=== PATIENT | male | born 1975 | race Caucasian/White ===

== ENCOUNTER 2017-12-02 15:57 | Outpatient (CLI) | payer MEDICAID ==
--- NOTE | 2017-12-02 21:44 | XRay Report ---
FINAL REPORT PROCEDURE: XR FOOT 3+V LT TECHNIQUE: LEFT foot radiographs, AP, lateral, and oblique views. CPT 39305 HISTORY: PAIN IN LEFT FOOT COMPARISON: No prior studies are available for comparison. FINDINGS: Fracture (s) and/or Dislocation(s): None . Alignment: Normal . Joint space(s): Normal . Soft tissues: Normal . Bone mineralization: Normal . Foreign bodies: None . Calcaneal spurring: None . IMPRESSION: Normal Examination .
--- NOTE | 2017-12-02 21:46 | XRay Report ---
FINAL REPORT PROCEDURE: XR KNEES STANDING AP BILATERAL TECHNIQUE: Bilateral knee radiographs, standing AP view. HISTORY: BILATERAL KNEE PAIN COMPARISON: No prior studies are available for comparison. FINDINGS: Fracture (s) and/or Dislocation(s): None . Joint space(s): Normal. Soft tissues: Normal. Bone mineralization: Normal. Foreign bodies: None. IMPRESSION: Normal Examination.
== END 2017-12-02 15:58 | disposition home or self-care (01) ==
LOC: XRAY 15:57
PROVIDERS: ATTEND Orthopaedic Surgery
DX: M25.562 Pain in left knee (principal); M25.561 Pain in right knee; M79.672 Pain in left foot
CPT/HCPCS: 73565

== ENCOUNTER 2018-06-30 09:02 | Day surgery (SDC) | payer MEDICAID ==
[2018-06-30] MEDS ORDERED: DILAUDID IV PRN (10:49)
[2018-06-30] MEDS ORDERED: XYLOCAINE MPF 2% ONE (10:49)
[2018-06-30] MEDS ORDERED: SUBLIMAZE ONE (10:49)
[2018-06-30] MEDS ORDERED: SUBLIMAZE IV NR (10:49)
--- NOTE | 2018-06-30 10:49 | Anesthesia Day of Surgery ---
Anesthesia Day of Surgery - Day of Surgery Patient Examined: Yes Patient H&P Reviewed: Yes Patient is NPO: Yes
--- NOTE | 2018-06-30 10:49 | Anesthesia Consultation ---
Anesthesia Consult and Med Hx Date of service: 06/30/18 - Airway Anesthetic Teeth Evaluation: Good (missing teeth; none loose) ROM Head & Neck: Adequate Mental/Hyoid Distance: Adequate Mallampati Class: Class III Intubation Access Assessment: Possibly Difficult - Pulmonary Exam CTA: Yes - Cardiac Exam Cardiac Exam: RRR - Pre-Operative Health Status ASA Pre-Surgery Classification: ASA3 Proposed Anesthetic Plan: General Nerve Block: IS - Pulmonary Hx Smoking: No Hx Asthma: Yes (has not required inhaler in many years) SOB: No Hx Sleep Apnea: No (HERNÁN PRE SCREEN HIGH RISK) - Cardiovascular System Hx Hypertension: No Hx Heart Attack/AMI: No - Central Nervous System Hx Seizures: No CVA: No - Gastrointestinal Hx Gastroesophageal Reflux Disease: No - Endocrine Hx Renal Disease: No Hx Liver Disease: No Hx Insulin Dependent Diabetes: Yes Hx Thyroid Disease: No - Other Systems Hx Obesity: Yes - Additional Comments Anesthesia Medical History Comments: Consented for preop interscalene block for postop analgesia
[2018-06-30] MEDS ORDERED: DIPRIVAN 10 MG/ML IV ONE ×2 (10:50→14:55)
[2018-06-30] MEDS ORDERED: LACTATED RINGERS 1,000 ML IV SCH (11:00)
[2018-06-30] MEDS ORDERED: VERSED IV NR (11:00)
[2018-06-30] MEDS ORDERED: XYLOCAINE 1% 20 mL ONE (11:07)
[2018-06-30] MEDS ORDERED: DEPO-Medrol ONE (11:56)
[2018-06-30] MEDS ORDERED: ADRENALIN ONE (11:56)
[2018-06-30] MEDS ORDERED: MARCAINE-EPI 0.25%-1:200,000 INFILTRATI ONE (11:56)
[2018-06-30] MEDS ORDERED: ANCEF/STERILE WATER 2 GM/20 ML IV NR (13:00)
[2018-06-30] MEDS ORDERED: ADRENALIN IV ONE (13:36)
[2018-06-30] MEDS ORDERED: NACL 0.9% IR ONE (13:36)
[2018-06-30] MEDS ORDERED: QUELICIN ONE (14:54)
[2018-06-30] MEDS ORDERED: ZOFRAN ONE (15:18)
[2018-06-30] MEDS ORDERED: BLOXIVERZ ONE (15:18)
[2018-06-30] MEDS ORDERED: ROBINUL ONE (15:18)
--- NOTE | 2018-06-30 15:55 | Procedure Note ---
Date of procedure: 06/30/18 Pre-op diagnosis: impingement syndrome right shoulder possible rotator cuff tear Post-op diagnosis: other (impingement syndrome right shoulder partial-thickness tear supraspinatus tendon) Procedure: Arthroscopy right shoulder subacromial decompression Procedure The patient was brought to the OR after being given a scalene nerve block in preoperative holding The patient was placed supine onto the OR table this was followed by induction and intubation by anesthesia Patient was turned into the left lateral decubitus position at which point the right shoulder was prepped and draped in the usual sterile manner A, procedure was done to identify the patient and the correct operative site. Routine arthroscopic portals were made next the arthroscope was inserted into the subcutaneous subacromial space the shoulder was then insufflated with normal saline solution examination at this point revealed partial-thickness tears in the supraspinatus tendon upon probing there was no full-thickness tear is noted however patient was found to have a large bony prominence underneath the subacromial region using a combination of arthroscopic shaver and radiofrequency ablation the soft tissue was removed over the dorsal acromion and before meals joints next a 5.5 bur was brought in and the bony tissues were debrided back to create a more space for the rotator cuff tendon the arm was taken through a range of motion internal and external rotation again there was no obvious full-thickness tears noted and in addition the bony impingement noted at the beginning was now gone. Followingthe shoulder joint was then copiously irrigated with saline solution a second look was done no remaining bony of soft tissue debris was left in the subacromial space. The arthroscope was then removed the stab wounds were repaired routine postoperative dressings were applied the patient tolerated procedure and there were no complications. He was taken to postanesthesia recovery in a stable condition Anesthesia: ric WEIR Surgeon: PIA CASILLAS Classified Ad Taker: REJI GRISSOM Estimated blood loss: minimal Pathology: none Condition: stable Disposition: PACU
[2018-06-30 16:25] VITALS: BP 120/65
[2018-07-01] MEDS ORDERED: PERCOCET 5/325 ONE (18:01)
== END 2018-06-30 16:55 | disposition home or self-care (01) ==
LOC: OR 09:02
PROVIDERS: ATTEND Orthopaedic Surgery
DX: M75.121 Complete rotator cuff tear or rupture of right shoulder, not specified as traumatic (principal); F17.210 Nicotine dependence, cigarettes, uncomplicated; E11.9 Type 2 diabetes mellitus without complications; J45.909 Unspecified asthma, uncomplicated; K21.9 Gastro-esophageal reflux disease without esophagitis; E66.9 Obesity, unspecified; Z68.38 Body mass index [BMI] 38.0-38.9, adult; Z79.84 Long term (current) use of oral hypoglycemic drugs; Z79.899 Other long term (current) drug therapy; Z79.4 Long term (current) use of insulin
CPT/HCPCS: 29822; 82962; A4217; J0171; J0330; J2250; J2405; J2704; J2710; J3010; J7120; J1030

== ENCOUNTER 2018-07-01 10:54 | Inpatient (IN) | payer MEDICAID ==
[2018-07-01 11:24] LABS: Basophils # (Auto) 0.1 K/mm3 (0.0-0.1); Basophils % (Auto) 0.4 % (0.0-1.8); Eosinophils % (Auto) 0.1 % (0.0-4.3); Hematocrit 45.3 % (35.5-45.6); Hemoglobin 15.7 gm/dl (11.8-15.2); Lymphocytes # (Auto) 1.5 K/mm3 (1.2-5.4); Lymphocytes % (Auto) 9.7 % (13.4-35.0); Mean Corpuscular HGB Conc 35 % (32-34); Mean Corpuscular Hemoglobin 31 pg (28-32); Mean Corpuscular Volume 91 fl (84-94); Monocytes # (Auto) 1.5 K/mm3 (0.0-0.8); Monocytes % (Auto) 9.9 % (0.0-7.3); Platelet Count 198 K/mm3 (140-440); Red Blood Count 5.01 M/mm3 (3.65-5.03); Red Cell Distribution Width 13.1 % (13.2-15.2)
[2018-07-01 11:47] LABS: BUN/Creatinine Ratio 11; Blood Urea Nitrogen 8 mg/dL (9-20); Calcium 8.7 mg/dL (8.4-10.2); Hemolysis Index 17
--- NOTE | 2018-07-01 12:11 | Emergency Department Report ---
ED Shortness of Breath HPI - General Chief Complaint: Fever Stated Complaint: FEVER/SOB/PAIN Time Seen by Provider: 07/01/18 12:06 Source: patient, family Mode of arrival: Ambulatory Limitations: Language Barrier - History of Present Illness Initial Comments: She is a 43-year-old male that presents emergency room with complaints of chest pain, fever, shortness of breath that started this morning. Patient states that he had shoulder surgery yesterday where he had an arthroscopic repair and was intubated. Patient states his fever was 103 last night and today he developed chest pain and shortness of breath. Patient states she has a cough. Patient states the pain in his shoulder is a 10 out 10 and and his chest pain is an 8 out of 10. Patient states the chest pain is sub- sternal and radiates to the left chest. Patient states that all this pain is better with rest and worse with movement and exertion. MD Complaint: shortness of breath, cough, chest pain, pain with inspiration -: Sudden Severity: severe Pain Scale: 10 Quality: sharp, stabbing Consistency: constant Improves With: rest Worsens With: exertion, movement, coughing Context: other (since surgery with intubation) Associated Symptoms: chest pain, pain with inspiration, fever, cough, sputum production, hemoptysis, diaphoresis, nausea/vomiting Treatments Prior to Arrival: none - Related Data Home Oxygen Therapy: No Home Medications Medication Instructions Recorded Confirmed Last Taken Ibuprofen [Motrin] 800 mg PO Q8HR PRN 01/05/18 07/01/18 06/28/18 Metformin HCl [Glucophage] 1,000 mg PO BID 01/05/18 07/01/18 06/29/18 09:00 Insulin Lispro Protamin/Lispro 60 units SUB-Q BID 07/01/18 07/01/18 Unknown [HumaLOG Mix 75-25 Kwikpen] Previous Rx's Medication Instructions Recorded Last Taken Type oxyCODONE [Roxicodone TAB] 5 mg PO Q6HR PRN #20 tablet 06/30/18 Unknown Rx Allergies Allergy/AdvReac Type Severity Reaction Status Date / Time No Known Allergies Allergy Verified 01/05/18 16:12 ED Review of Systems ROS: Stated complaint: FEVER/SOB/PAIN Other details as noted in HPI Constitutional: chills, fever Eyes: denies: eye pain, eye discharge, vision change ENT: denies: ear pain, throat pain Respiratory: cough, shortness of breath, SOB with exertion, SOB at rest. denies : wheezing Cardiovascular: chest pain, dyspnea on exertion. denies: palpitations Endocrine: no symptoms reported Gastrointestinal: denies: abdominal pain, nausea, diarrhea Genitourinary: denies: urgency, dysuria Musculoskeletal: denies: back pain, joint swelling, arthralgia Skin: denies: rash, lesions Neurological: denies: headache, weakness, paresthesias Psychiatric: denies: anxiety, depression Hematological/Lymphatic: denies: easy bleeding, easy bruising ED Past Medical Hx - Past Medical History Previous Medical History?: Yes Hx Hypertension: No Hx Heart Attack/AMI: No Hx Diabetes: Yes Hx GERD: Yes Hx Liver Disease: No Hx Renal Disease: No Hx Seizures: No Hx Asthma: Yes (has not required inhaler in many years) Hx HIV: No - Surgical History Past Surgical History?: Yes Additional Surgical History: right shoulder surgery. right eye surgery - Family History Family history: no significant - Social History Smoking Status: Never Smoker Substance Use Type: None - Medications Home Medications: Home Medications Medication Instructions Recorded Confirmed Last Taken Type Ibuprofen [Motrin] 800 mg PO Q8HR PRN 01/05/18 07/01/18 06/28/18 History Metformin HCl [Glucophage] 1,000 mg PO BID 01/05/18 07/01/18 06/29/18 09:00 History oxyCODONE [Roxicodone TAB] 5 mg PO Q6HR PRN #20 tablet 06/30/18 07/01/18 Unknown Rx Insulin Lispro Protamin/Lispro 60 units SUB-Q BID 07/01/18 07/01/18 Unknown History [HumaLOG Mix 75-25 Kwikpen] ED Physical Exam - General Limitations: No Limitations, Language Barrier General appearance: alert, in no apparent distress - Head Head exam: Present: atraumatic, normocephalic - Eye Eye exam: Present: normal appearance - ENT ENT exam: Present: mucous membranes moist - Neck Neck exam: Present: normal inspection - Respiratory Respiratory exam: Present: normal lung sounds bilaterally, rhonchi, decreased breath sounds - Cardiovascular Cardiovascular Exam: Present: regular rate, normal rhythm. Absent: systolic murmur, diastolic murmur, rubs, gallop - GI/Abdominal GI/Abdominal exam: Present: soft, normal bowel sounds - Rectal Rectal exam: Present: deferred - Extremities Exam Extremities exam: Present: normal inspection (right shoulder tender to palpation and has a bandage in place), tenderness - Back Exam Back exam: Present: normal inspection - Neurological Exam Neurological exam: Present: alert, oriented X3 - Psychiatric Psychiatric exam: Present: normal affect, normal mood - Skin Skin exam: Present: warm, dry, normal color, other (surgical sites look good. no redness noted. ). Absent: rash ED Course Vital Signs 07/01/18 07/01/18 07/01/18 11:01 11:42 11:45 Temperature 99.3 F Pulse Rate 84 86 82 Respiratory 18 16 15 Rate Blood Pressure 125/77 O2 Sat by Pulse 96 95 96 Oximetry 07/01/18 07/01/18 07/01/18 12:01 12:15 12:31 Temperature Pulse Rate 87 81 80 Respiratory 15 15 24 Rate Blood Pressure 129/73 O2 Sat by Pulse 96 95 96 Oximetry 07/01/18 07/01/18 07/01/18 12:45 13:03 14:04 Temperature 98.4 F Pulse Rate 93 H 84 Respiratory 14 15 Rate Blood Pressure 129/73 O2 Sat by Pulse 94 Oximetry 07/01/18 07/01/18 07/01/18 14:16 15:00 16:00 Temperature Pulse Rate 83 69 88 Respiratory 17 24 18 Rate Blood Pressure 123/67 124/72 137/64 O2 Sat by Pulse 91 Oximetry 07/01/18 17:00 Temperature Pulse Rate 79 Respiratory 17 Rate Blood Pressure 125/72 O2 Sat by Pulse 90 Oximetry - Reevaluation(s) Reevaluation #1: Test results with patient. Patient to be admitted to the hospitalist service. Patient agrees to plan of care and admission. 07/01/18 14:34 - Consultations Consultation #1: Dr. Pimentel consulted for admission. Dr. Pimentel to admit patient and assume care 07/01/18 14:34 ED Medical Decision Making - Lab Data Result diagrams: 07/01/18 11:13 07/01/18 11:13 - EKG Data -: EKG Interpreted by Hi EKG shows normal: sinus rhythm, axis, intervals, QRS complexes, ST-T waves Rate: normal - EKG Data Interpretation: LVH - Radiology Data Radiology results: report reviewed CTA CHEST INDICATION: Chest pain, shortness of breath, fever. COMPARISON: None similar. FINDINGS: Chest CTA performed following intravenous administration of 100 cc of Omnipaque 350. Rotational MIP's also obtained. Unremarkable heart and great vessels. No significant effusions or adenopathy. Patent central airway. Normal imaged thyroid. Mild bibasilar atelectasis posteriorly, right more than left. Right hepatic lobe approximately 3 cm higher than the left. Imaged upper abdomen demonstrates extensive diffuse fatty hepatic infiltration. Right hepatic lobe approximately 20 cm in midclavicular length. Mild multilevel spinal degenerative spurring. CONCLUSION: Mild bibasilar atelectasis and extensive fatty hepatic infiltration without CT evidence of pulmonary embolism, as described. Please correlate. Thank you for the opportunity to participate in this patient's care. Transcribed By: RS Dictated By: CHAVO JONES MD Electronically Authenticated By: CHAVO JONES MD Signed Date/Time: 07/01/18 6037 - Medical Decision Making Patient is a 43-year-old male that presents to [facility] with chest pain, shortness of breath and fever. Patient is postop yesterday for arthroscopic shoulder surgery. Patient found to have bibasilar atelectasis most likely secondary to pneumonia. One patient had surgery yesterday was intubated. Patient's white count was high and lactic acid is high. Patient diagnosed with sepsis and pneumonia. She will be admitted to the hospitalist service for further evaluation treatment. - Differential Diagnosis fever, postop fever, chest pain, sob, pneumonia, sepsis. Cough Critical Care Time: Yes Critical care attestation.: If time is entered above; I have spent that time in minutes in the direct care of this critically ill patient, excluding procedure time. Critical Care Time: 35 minutes for cc time. ED Disposition Clinical Impression: SOB (shortness of breath), Cough Fever Qualifiers: Fever type: post-procedural Qualified Code(s): R50.82 - Postprocedural fever Chest pain Qualifiers: Chest pain type: unspecified Qualified Code(s): R07.9 - Chest pain, unspecified Pneumonia Qualifiers: Pneumonia type: due to unspecified organism Laterality: bilateral Lung location : unspecified part of lung Qualified Code(s): J18.9 - Pneumonia, unspecified organism Sepsis Qualifiers: Sepsis type: sepsis due to unspecified organism Qualified Code(s): A41.9 - Sepsis, unspecified organism Disposition: DC09 OP ADMIT IP TO THIS HOSP Is pt being admited?: Yes Does the pt Need Aspirin: No Condition: Critical Time of Disposition: 14:08
[2018-07-01] MEDS ORDERED: MORPHINE IV ONE (12:30)
--- NOTE | 2018-07-01 13:20 | Cat Scan Report ---
CTA CHEST INDICATION: Chest pain, shortness of breath, fever. COMPARISON: None similar. FINDINGS: Chest CTA performed following intravenous administration of 100 cc of Omnipaque 350. Rotational MIP's also obtained. Unremarkable heart and great vessels. No significant effusions or adenopathy. Patent central airway. Normal imaged thyroid. Mild bibasilar atelectasis posteriorly, right more than left. Right hepatic lobe approximately 3 cm higher than the left. Imaged upper abdomen demonstrates extensive diffuse fatty hepatic infiltration. Right hepatic lobe approximately 20 cm in midclavicular length. Mild multilevel spinal degenerative spurring. CONCLUSION: Mild bibasilar atelectasis and extensive fatty hepatic infiltration without CT evidence of pulmonary embolism, as described. Please correlate. Thank you for the opportunity to participate in this patient's care.
[2018-07-01] MEDS ORDERED: NACL 0.9% 1000 ML 1,000 ML IV ONE ×2 (13:54→14:46)
[2018-07-01] MEDS ORDERED: DILAUDID IV ONE (14:06)
[2018-07-01] MEDS ORDERED: VANCOMYCIN/NS 1 GM/250 ML 1 GM/250 ML BAG IV SCH (14:32)
[2018-07-01] MEDS ORDERED: ZOSYN/NS 3.375GM/50ML 3.375 GM/50 ML BAG IV ONE (14:54)
[2018-07-01] MEDS ORDERED: VANCOMYCIN 2,000 MG in NACL 0.9% 500 ML 500 ML IV ONE (15:00)
--- NOTE | 2018-07-01 17:09 | History and Physical Report ---
History of Present Illness Date of examination: 07/01/18 Date of admission: 07/01/18 Chief complaint: Fever and Chest pain History of present illness: History of Present Illness: 43-year-old male that presents emergency room with complaints of chest pain, fever, shortness of breath that started this morning. Patient states that he had shoulder surgery yesterday where he had an arthroscopic repair and was intubated. Patient states his fever was 103 last night and today he developed chest pain and shortness of breath. Patient states he has a cough. Patient states the pain in his shoulder is a 10 out 10 and and his chest pain is an 8 out of 10. Patient states the chest pain is sub- sternal and radiates to the left chest. Patient states that all this pain is better with rest and worse with movement and exertion. Past Medical History Previous Medical History?: Yes Hx GERD: Yes Hx Asthma: Yes (has not required inhaler in many years) Surgical History Past Surgical History?: Yes Additional Surgical History: right shoulder surgery. right eye surgery Family History Family history: no significant Social History Smoking Status: Never Smoker Substance Use Type: None Medications Home Medications: Home Medications Medication Instructions Recorded Confirmed Last Taken Type Ibuprofen [Motrin] 800 mg PO Q8HR PRN 01/05/18 07/01/18 06/28/18 History Metformin HCl [Glucophage] 1,000 mg PO BID 01/05/18 07/01/18 06/29/18 09:00 History oxyCODONE [Roxicodone TAB] 5 mg PO Q6HR PRN #20 tablet 06/30/18 07/01/18 Unknown Rx Insulin Lispro Protamin/Lispro 60 units SUB-Q BID 07/01/18 07/01/18 Unknown History [HumaLOG Mix 75-25 Kwikpen] Medications and Allergies Allergies Allergy/AdvReac Type Severity Reaction Status Date / Time No Known Allergies Allergy Verified 01/05/18 16:12 Home Medications Medication Instructions Recorded Confirmed Last Taken Type Ibuprofen [Motrin] 800 mg PO Q8HR PRN 01/05/18 07/01/18 06/28/18 History Metformin HCl [Glucophage] 1,000 mg PO BID 01/05/18 07/01/18 06/29/18 09:00 History oxyCODONE [Roxicodone TAB] 5 mg PO Q6HR PRN #20 tablet 06/30/18 07/01/18 Unknown Rx Insulin Lispro Protamin/Lispro 60 units SUB-Q BID 07/01/18 07/01/18 Unknown History [HumaLOG Mix 75-25 Kwikpen] Exam - Constitutional Vitals: Temp Pulse Resp BP Pulse Ox 98.4 F 88 18 137/64 91 07/01/18 13:03 07/01/18 16:00 07/01/18 16:00 07/01/18 16:00 07/01/18 14:16 General appearance: Present: no acute distress, well-nourished - EENT Eyes: Present: PERRL ENT: hearing intact, clear oral mucosa - Neck Neck: Present: supple, normal ROM - Respiratory Respiratory effort: normal Respiratory: bilateral: CTA, rhonchi (Scattered) - Cardiovascular Heart rate: 78 Rhythm: regular Heart Sounds: Present: S1 & S2. Absent: rub, click - Extremities Extremities: no ischemia, pulses intact, pulses symmetrical, No edema Peripheral Pulses: within normal limits - Abdominal General gastrointestinal: Present: soft, non-tender, non-distended, normal bowel sounds Male genitourinary: Present: normal - Rectal Rectal Exam: deferred - Integumentary Integumentary: Present: clear, warm, dry - Musculoskeletal Musculoskeletal: gait normal, strength equal bilaterally - Psychiatric Psychiatric: appropriate mood/affect, intact judgment & insight - Neurologic Neurologic: CNII-XII intact, moves all extremities Results - Labs CBC & Chem 7: 07/01/18 11:13 07/01/18 11:13 Labs: Laboratory Last Values WBC 15.3 K/mm3 (4.5-11.0) H 07/01/18 11:13 RBC 5.01 M/mm3 (3.65-5.03) 07/01/18 11:13 Hgb 15.7 gm/dl (11.8-15.2) H 07/01/18 11:13 Hct 45.3 % (35.5-45.6) 07/01/18 11:13 MCV 91 fl (84-94) 07/01/18 11:13 MCH 31 pg (28-32) 07/01/18 11:13 MCHC 35 % (32-34) H 07/01/18 11:13 RDW 13.1 % (13.2-15.2) L 07/01/18 11:13 Plt Count 198 K/mm3 (140-440) 07/01/18 11:13 Lymph % (Auto) 9.7 % (13.4-35.0) L 07/01/18 11:13 [place] % (Auto) 9.9 % (0.0-7.3) H 07/01/18 11:13 Eos % (Auto) 0.1 % (0.0-4.3) 07/01/18 11:13 Baso % (Auto) 0.4 % (0.0-1.8) 07/01/18 11:13 Lymph # 1.5 K/mm3 (1.2-5.4) 07/01/18 11:13 [place] # 1.5 K/mm3 (0.0-0.8) H 07/01/18 11:13 Eos # 0.0 K/mm3 (0.0-0.4) 07/01/18 11:13 Baso # 0.1 K/mm3 (0.0-0.1) 07/01/18 11:13 Seg Neutrophils % 79.9 % (40.0-70.0) H 07/01/18 11:13 Seg Neutrophils # 12.3 K/mm3 (1.8-7.7) H 07/01/18 11:13 D-Dimer 298.98 ng/mlDDU (0-234) H 07/01/18 12:13 Sodium 132 mmol/L (137-145) L 07/01/18 11:13 Potassium 4.1 mmol/L (3.6-5.0) 07/01/18 11:13 Chloride 96.0 mmol/L (98-107) L 07/01/18 11:13 Carbon Dioxide 23 mmol/L (22-30) 07/01/18 11:13 Anion Gap 17 mmol/L 07/01/18 11:13 BUN 8 mg/dL (9-20) L 07/01/18 11:13 Creatinine 0.7 mg/dL (0.8-1.5) L 07/01/18 11:13 Estimated GFR > 60 ml/min 07/01/18 11:13 BUN/Creatinine Ratio 11 % 07/01/18 11:13 Glucose 326 mg/dL (75-100) H 07/01/18 11:13 Lactic Acid 1.90 mmol/L (0.7-2.0) 07/01/18 13:16 Calcium 8.7 mg/dL (8.4-10.2) 07/01/18 11:13 Troponin T < 0.010 ng/mL (0.00-0.029) 07/01/18 16:20 NT-Pro-B Natriuret Pep 111.7 pg/mL (0-450) 07/01/18 12:24 - Imaging and Cardiology EKG: report reviewed Imaging and Cardiology: Chest CTA CONCLUSION: Mild bibasilar atelectasis and extensive fatty hepatic infiltration without CT evidence of pulmonary embolism, as described. Please correlate. Assessment and Plan Advance Directives: Yes (Full code) VTE prophylaxis?: Chemical Plan of care discussed with patient/family: Yes - Patient Problems (1) Pneumonia Current Visit: Yes Status: Acute Qualifiers: Pneumonia type: aspiration pneumonia Laterality: bilateral Lung location : unspecified part of lung Plan to address problem: Aspiration a possibility sec to Intubation for a Shoulder procedure yesterday IV abx for now No clear infiltrate on CTA of Chest (2) Chest pain Current Visit: Yes Status: Acute Qualifiers: Chest pain type: chest pain on breathing Qualified Code(s): R07.1 - Chest pain on breathing; R07.81 - Pleurodynia Plan to address problem: Probably sec to Pleurisy Will get Stress test on Wednesday (3) IDDM (insulin dependent diabetes mellitus) Current Visit: Yes Status: Chronic Plan to address problem: Cont Home insulin and coverage (4) Hyponatremia Current Visit: Yes Status: Acute Plan to address problem: probably sec to High Glucose levels Will recheck (5) DVT prophylaxis Current Visit: Yes Status: Acute Plan to address problem: on lovenox
[2018-07-01] MEDS ORDERED: SODIUM CHLORIDE FLUSH SYRINGE 10 ML IV PRN (17:11)
[2018-07-01] MEDS ORDERED: ZOFRAN IV PRN (17:11)
[2018-07-01] MEDS ORDERED: PERCOCET 5/325 PO PRN (17:13)
[2018-07-01] MEDS ORDERED: D5NS 1,000 ML IV SCH (18:00)
[2018-07-01] MEDS: ROCEPHIN/NS 2 GM/100 ML 2 GM/100 ML BAG IV SCH (18:02)
[2018-07-01] MEDS: ZITHROMAX 500 MG in NACL 0.9% 250ML 250 ML IV SCH (18:31)
[2018-07-01 18:38] LABS: Bilirubin,Urine NEG (Negative); Blood,Urine NEG (Negative); Color,Urine Yellow (Yellow); Protein,Urine <15 mg/dL mg/dL (Negative); Urobilinogen,Urine < 2.0 mg/dL (<2.0)
[2018-07-01] MEDS ORDERED: SODIUM CHLORIDE FLUSH SYRINGE 10 ML IV SCH (22:00)
[2018-07-01] MEDS: PEPCID PO SCH (22:56)
[2018-07-01] MEDS: MORPHINE IV PRN (22:56)
[2018-07-01] MEDS: TYLENOL PO PRN (23:09)
[2018-07-02] MEDS: HumaLOG SUB-Q SCH ×3 (07:30→17:22)
[2018-07-02] MEDS ORDERED: LEXISCAN IV ONE ×2 (08:14→08:25)
[2018-07-02 08:34] LABS: Basophils % (Auto) 0.3 % (0.0-1.8); Eosinophils # (Auto) 0.1 K/mm3 (0.0-0.4); Eosinophils % (Auto) 0.5 % (0.0-4.3); Hematocrit 41.6 % (35.5-45.6); Hemoglobin 14.4 gm/dl (11.8-15.2); Lymphocytes # (Auto) 2.5 K/mm3 (1.2-5.4); Lymphocytes % (Auto) 20.5 % (13.4-35.0); Mean Corpuscular HGB Conc 35 % (32-34); Mean Corpuscular Hemoglobin 32 pg (28-32); Mean Corpuscular Volume 91 fl (84-94); Monocytes # (Auto) 1.2 K/mm3 (0.0-0.8); Monocytes % (Auto) 9.4 % (0.0-7.3); Platelet Count 167 K/mm3 (140-440); Red Blood Count 4.57 M/mm3 (3.65-5.03)
[2018-07-02 08:59] LABS: Alanine Aminotransferase 53 units/L (7-56); Albumin 3.8 g/dL (3.9-5); BUN/Creatinine Ratio 8; Blood Urea Nitrogen 5 mg/dL (9-20); Calcium 8.3 mg/dL (8.4-10.2); Hemolysis Index 2
[2018-07-02] MEDS: PEPCID PO SCH (09:54)
[2018-07-02] MEDS: ZITHROMAX 500 MG in NACL 0.9% 250ML 250 ML IV SCH (10:16)
[2018-07-02] MEDS: ROCEPHIN/NS 2 GM/100 ML 2 GM/100 ML BAG IV SCH (10:16)
[2018-07-02] MEDS: MORPHINE IV PRN ×2 (10:25→15:27)
[2018-07-02 12:01] VITALS: BP 135/79
--- NOTE | 2018-07-02 13:26 | Treadmill Report ---
NUCLEAR CARDIAC IMAGING INDICATION FOR PROCEDURE: Chest pain. Informed consent was obtained. Vasodilator stress was performed with the intravenous administration of 0.4 mg of Lexiscan per protocol. Rest and stress nuclear cardiac imaging were performed following the intravenous administration of 10 and 28 mCi of technetium 99m Myoview per protocol. Images were acquired in a 180-degree arc from 45 degrees CHERRY to 45 degrees LPO. After data acquisition and reconstruction, the images were processed and reoriented into the vertical long, horizontal long, and horizontal short axis slices. A polar color map of the horizontal short axis slices was generated and reviewed. The rotating planar images reviewed in cinematic format on the computer console. Gated SPECT imaging demonstrates a post-stress left ventricular ejection fraction of 61% with normal wall motion. Myocardial perfusion imaging demonstrates no significant cavity change between stress and rest. No significant stress-induced reversible perfusion defects are seen. Nuclear cardiac imaging demonstrates grossly normal post-stress left ventricular systolic function with no significant evidence for myocardial ischemia or necrosis. [facility]# [id number] ASHLEY/MADISYN
--- NOTE | 2018-07-02 15:10 | Discharge Summary ---
Providers - Providers Date of Admission: 07/01/18 17:11 Date of discharge: 07/02/18 Attending physician: SAJI BAR Primary care physician: [employer] Hospitalization Condition: Critical Hospital course: Discharge diagnosis: -Aspiration Pneumonitis Aspiration a possibility sec to Intubation for a Shoulder procedure yesterday No clear infiltrate on CTA of Chest treat with Augmentin -Chest pain Probably sec to Pleurisy/pneumonitis Normal Stress test - IDDM (insulin dependent diabetes mellitus) Cont Home insulin and coverage - Hyponatremia probably sec to High Glucose levels, stable - Fatty infiltration likely from uncontrolled DM and alcohol abuse -Alcohol abuse, counselled for cessation and outpt rehab, no sign for withdrawl - Possible sleep apnea, outpt sleep study - s/p right shoulder surgery, stable, outpt ortho f/u - DVT prophylaxis on lovenox Disposition: - TO HOME OR SELFCARE Time spent for discharge: 34 minutes Core Measure Documentation - Palliative Care Palliative Care/ Comfort Measures: Not Applicable - Core Measures Any of the following diagnoses?: none Exam - Constitutional Vitals: Temp Pulse Resp BP Pulse Ox 98.9 F 81 20 135/79 95 07/02/18 05:49 07/02/18 11:47 07/02/18 05:49 07/02/18 11:47 07/02/18 05:49 General appearance: Present: no acute distress, obese - EENT Eyes: Present: PERRL ENT: hearing intact, clear oral mucosa - Neck Neck: Present: supple, normal ROM - Respiratory Respiratory effort: normal Respiratory: bilateral: CTA - Cardiovascular Heart Sounds: Present: S1 & S2. Absent: rub, click - Extremities Extremities: pulses symmetrical, No edema Peripheral Pulses: within normal limits - Abdominal General gastrointestinal: Present: soft, non-tender, non-distended, normal bowel sounds - Integumentary Integumentary: Present: clear, warm, dry - Musculoskeletal Musculoskeletal: gait normal, strength equal bilaterally - Psychiatric Psychiatric: appropriate mood/affect, intact judgment & insight - Neurologic Neurologic: CNII-XII intact, moves all extremities Plan Activity: advance as tolerated Weight Bearing Status: Non-Weight Bearing Diet: diabetic Follow up with: PRIMARY CARE, [Primary Care Provider] - 3-5 Days Prescriptions: Amoxicillin/K Clav Tab [Augmentin 875 mg] 1 tab PO Q12HR #8 tab
[2018-07-02] MEDS ORDERED: MIRALAX 3350 PO SCH (16:00)
--- NOTE | 2018-07-02 16:08 | XRay Report ---
FINAL REPORT EXAM: XR ABDOMEN 1V AP HISTORY: luq pain TECHNIQUE: One view of the abdomen PRIORS: None. FINDINGS: Pneumoperitoneum: None visible. Visceromegaly: None visible. Mass: Non visible. Abnormal calcification: None. Intestinal distention: Nonspecific scattered slight prominence of gas in multiple areas of colon and small intestine. Intestinal obstructive pattern: None visible. Stool volume: Within normal limits. IMPRESSION: Nonspecific prominence of scattered gas, without gross intestinal distention, may reflect paralytic ileus
[2018-07-02] MEDS ORDERED: DULCOLAX PR ONE (18:00)
[2018-07-02] MEDS: TYLENOL PO PRN (18:15)
[2018-07-02] MEDS ORDERED: LOVENOX SUB-Q SCH (22:00)
[2018-07-02] MEDS ORDERED: COLACE PO SCH (22:00)
== END 2018-07-02 18:52 | disposition home or self-care (01) | DRG 871 ==
LOC: ED 10:54 → 3A 17:11
PROVIDERS: ADMIT Internal Medicine; ATTEND Internal Medicine
DX: A41.9 Sepsis, unspecified organism (principal); J69.0 Pneumonitis due to inhalation of food and vomit; E87.1 Hypo-osmolality and hyponatremia; E11.9 Type 2 diabetes mellitus without complications; R50.82 Postprocedural fever; K21.9 Gastro-esophageal reflux disease without esophagitis; G47.30 Sleep apnea, unspecified; F10.188 Alcohol abuse with other alcohol-induced disorder; Y90.0 Blood alcohol level of less than 20 mg/100 ml; K76.0 Fatty (change of) liver, not elsewhere classified; J45.909 Unspecified asthma, uncomplicated; Z79.899 Other long term (current) drug therapy; Z79.82 Long term (current) use of aspirin; Z71.41 Alcohol abuse counseling and surveillance of alcoholic; Z79.84 Long term (current) use of oral hypoglycemic drugs
CPT/HCPCS: 36415; 71275; 74018; 78452; 80048; 80053; 81001; 82140; 82962; 83036; 83880; 84484; 85025; 85379; 87040; 87086; 93005; 93010; 93017; 96361; 96365; 96366; 96367; 96375; A9502; J0456; J0696; J1170; J1815; J2270; J2543; J2785; J3370; J7030; J7040; J7042; J7050; Q9967

== ENCOUNTER 2019-04-10 09:43 | Outpatient (CLI) | payer MEDICAID ==
[2019-04-10 10:43] LABS: Hemoglobin 17.8 gm/dl (11.8-15.2); Mean Corpuscular HGB Conc 35 % (32-34); Mean Corpuscular Volume 92 fl (84-94); Platelet Count 170 K/mm3 (140-440); Red Blood Count 5.51 M/mm3 (3.65-5.03); Red Cell Distribution Width 13.1 % (13.2-15.2)
[2019-04-10 11:09] LABS: Alanine Aminotransferase 91 units/L (7-56); Albumin 4.5 g/dL (3.9-5); BUN/Creatinine Ratio 14; Blood Urea Nitrogen 10 mg/dL (9-20); Chol/HDL Ratio 3.49 %; HDL Cholesterol 51 mg/dL (40-59); Hemolysis Index 7; LDL Cholesterol,Direct 117 mg/dL (50-130)
[2019-04-13 12:59] LABS: Vitamin D, 25-OH, D2 <4 ng/mL
== END 2019-04-10 09:44 | disposition home or self-care (01) ==
LOC: LAB 09:43
PROVIDERS: ATTEND Internal Medicine
DX: Z13.21 Encounter for screening for nutritional disorder (principal); E11.65 Type 2 diabetes mellitus with hyperglycemia; E78.5 Hyperlipidemia, unspecified; J45.909 Unspecified asthma, uncomplicated; K21.9 Gastro-esophageal reflux disease without esophagitis; E11.9 Type 2 diabetes mellitus without complications
CPT/HCPCS: 36415; 80053; 80061; 82306; 82607; 83036; 84443; 85027